=== PATIENT | male | born 1955 | race Hispanic/Latino ===

== ENCOUNTER 2020-03-12 11:03 | Day surgery (SDC) | payer OTHER ==
[~2020-03-12] VITALS: Ht 170.2 cm; Wt 91.2 kg
[2020-03-12] VITALS (8 sets, daily range): BP systolic 107–125; BP diastolic 71–81; PULSE 71–77; RESP 16–18; TEMP 97.5–97.6
[2020-03-12] MEDS ORDERED: SODIUM CHLORIDE 0.9% 1000ML 1,000 ML IV ONE (11:46)
[2020-03-12] MEDS ORDERED: PROPOFOL 10 MG/ML 20ML VIAL IV ONE ×2 (13:14→13:36)
[2020-03-12] MEDS ORDERED: FENTANYL CITRATE PF 50 MCG/1 ML 2ML VIAL ONE (13:14)
[2020-03-12] MEDS ORDERED: EPHEDRINE SULFATE 50 MG/ML AMPULE ONE (13:37)
== END 2020-03-12 14:40 | disposition home or self-care (01) ==
LOC: DAH 11:03 → SUH 11:03
PROVIDERS: ATTEND Surgery
DX: Z09 Encounter for follow-up examination after completed treatment for conditions other than malignant neoplasm (principal); D12.2 Benign neoplasm of ascending colon; Z11.59 Encounter for screening for other viral diseases; K57.30 Diverticulosis of large intestine without perforation or abscess without bleeding; I10 Essential (primary) hypertension; E78.5 Hyperlipidemia, unspecified; M10.9 Gout, unspecified; E07.89 Other specified disorders of thyroid; E07.9 Disorder of thyroid, unspecified; Z79.899 Other long term (current) drug therapy; Z79.890 Hormone replacement therapy; Z83.3 Family history of diabetes mellitus; Z82.49 Family history of ischemic heart disease and other diseases of the circulatory system
CPT/HCPCS: 36415; 45385; 88305; A4215; A4221; A4222; A4223; A4606; A4620; A4649; A4663; J2704 ×2; J3010; J3490; J7030; U0003

== ENCOUNTER 2023-04-03 05:44 | Day surgery (SDC) | payer OTHER ==
[2023-04-01 16:00] VITALS: BP 155/92
[~2023-04-03] VITALS: Ht 170.2 cm; Wt 93.0 kg
[~2023-04-03 05:44] MED LIST: ALLO300T2 PO; BETA1TAB20 PO; LEVO150C4 PO; LISI40TA9 PO; TAMS-1 PO
[2023-04-03 06:30] VITALS: BP 135/89
[2023-04-03] MEDS ORDERED: PROPOFOL 10 MG/ML 20ML VIAL IV ONE ×2 (08:09→08:40)
== END 2023-04-03 09:35 | disposition home or self-care (01) ==
LOC: DAH 05:44 → ENDO 05:44
PROVIDERS: ATTEND Surgery
DX: Z12.11 Encounter for screening for malignant neoplasm of colon (principal); Z20.822 Contact with and (suspected) exposure to COVID-19; K57.91 Diverticulosis of intestine, part unspecified, without perforation or abscess with bleeding; I10 Essential (primary) hypertension; K21.9 Gastro-esophageal reflux disease without esophagitis; M10.9 Gout, unspecified; E78.5 Hyperlipidemia, unspecified; Z82.49 Family history of ischemic heart disease and other diseases of the circulatory system; Z83.3 Family history of diabetes mellitus; Z79.899 Other long term (current) drug therapy; Z79.890 Hormone replacement therapy; Z98.890 Other specified postprocedural states
CPT/HCPCS: 87426; 45378; J2704 ×2; A4620; A4215 ×2; A4223; A4657 ×3; A7002; A4222; A4221; A4663; A4216; J7030; A4606

== ENCOUNTER → 2023-07-27 | Outpatient (CLI) | payer OTHER ==
[~2023-07-27] MED LIST changes: +IOHEXOL 350 MG/ML 100ML INFUS..BTL IV ONE; +IOHEXOL-350 50ML VIAL IV ONE
== END | disposition home or self-care (01) ==
LOC: RAH 07:56
PROVIDERS: ATTEND Internal Medicine Cardiovascular Disease
DX: K76.0 Fatty (change of) liver, not elsewhere classified (principal); I71.21 Aneurysm of the ascending aorta, without rupture; I71.20 Thoracic aortic aneurysm, without rupture, unspecified
CPT/HCPCS: 75635; 71275; Q9967 ×2

== ENCOUNTER 2024-07-18 11:30 | Observation (INO) | payer OTHER ==
[2024-07-15 12:02] VITALS: BP 147/83; PULSE 67; RESP 17; TEMP 98.6
[2024-07-15 12:11] LABS: BASOPHILS # (AUTO) 0.02 K/uL (0.00-0.20); BASOPHILS % (AUTO) 0.3 % (0.0-5.0); EOSINOPHILS # (AUTO) 0.24 K/uL (0.00-0.70); HEMATOCRIT 42.7 % (42-54); IMMATURE GRANULOCYTE ABSOLUTE 0.02 K/uL (0-1); LYMPHOCYTES # (AUTO) 1.1 K/uL (1.0-4.8); LYMPHOCYTES % (AUTO) 17.6 % (21.0-51.0); MEAN CORPUSCULAR HEMOGLOBIN 31.4 pg (27.0-33.0); MEAN CORPUSCULAR HGB CONC 34.9 g/dL (32.0-36.0); MEAN CORPUSCULAR VOLUME 90.1 fL (79-99); MONOCYTES # (AUTO) 0.3 K/uL (0.1-1.0); MONOCYTES % (AUTO) 5.6 % (3.0-13.0); NEUTROPHILS # (AUTO) 4.4 K/uL (1.8-7.7); NEUTROPHILS % (AUTO) 72.2 % (40.0-77.0); PLATELET COUNT (AUTO) 157 K/uL (130-400); RED BLOOD CELL COUNT(AUTO) 4.74 MIL/uL (4.50-6.20); RED CELL DISTRIBUTION WIDTH 12.9 % (11.0-15.5)
[2024-07-15 12:52] LABS: CREATININE 0.9 mg/dL (0.5-1.3)
[~2024-07-18] VITALS: Ht 170.2 cm; Wt 91.4 kg
[2024-07-18] VITALS (22 sets, daily range): BP systolic 120–132; BP diastolic 59–79; PULSE 60–81; RESP 14–20; TEMP 97.4–98.2
[~2024-07-18 11:30] MED LIST changes: -BETA1TAB20 PO; +BUPR-561 PO; +CHOL100046 PO; -IOHEXOL 350 MG/ML 100ML INFUS..BTL IV ONE; -IOHEXOL-350 50ML VIAL IV ONE
[2024-07-18] MEDS: ceFAZolin SODIUM 2 GM VIAL ONE (12:49)
[2024-07-18] MEDS: LACTATED RINGERS 1000ML 1,000 ML IV ONE (12:50)
[2024-07-18] MEDS ORDERED: ondanSETRON 4MG INJ ONE (15:56)
[2024-07-18] MEDS ORDERED: proPOFol 10 MG/ML 20ML VIAL IV ONE (15:56)
[2024-07-18] MEDS ORDERED: MIDAZOLAM HCL 1 MG/ML 2ML VIAL ONE (15:56)
[2024-07-18] MEDS ORDERED: rocuRONium bROMide 10MG/1ML 5ML VL ONE ×2 (15:56→16:24)
[2024-07-18] MEDS ORDERED: LIDOCAINE HCL MPF 1% 5ML VIAL ONE (15:56)
[2024-07-18] MEDS ORDERED: FENTanyl CITRate PF 50 MCG/1 ML 5ML AMP IV ONE (15:57)
[2024-07-18] MEDS: BUPIvacaine/PF 0.5% 30ML VIAL ONE (16:25)
[2024-07-18] MEDS ORDERED: metoCLOPRAmide 10 MG/2 ML VIAL ONE (16:40)
[2024-07-18] MEDS ORDERED: ketOROlac 30MG VIAL (30MG/ML) ONE (18:16)
[2024-07-18] MEDS ORDERED: GLYCOPYRROLATE 0.2 MG/ML 5 ML VIAL ONE (18:17)
[2024-07-18] MEDS ORDERED: NEOSTIGMINE METHYLSULFATE 1MG/ML IV ONE (18:18)
[2024-07-18] MEDS ORDERED: FENTanyl CITRate PF 50 MCG/1 ML 2ML VIAL ONE (18:22)
[2024-07-18] MEDS: LACTATED RINGERS 1000ML 1,000 ML IV SCH (19:00)
[2024-07-18] MEDS ORDERED: hydrALAZine 20MG/ML VIAL IV PRN (19:00)
[2024-07-18] MEDS ORDERED: hydroMORPHone 0.5 MG SYG (0.5MG/0.5ML) IVP PRN (19:00)
[2024-07-18] MEDS ORDERED: PROCHLORPERAZINE 10MG/2ML INJ IV PRN (19:00)
[2024-07-18] MEDS ORDERED: HYDROcod/acetaMINOPHEN 7.5/325 MG 15 ML UDCUP PO PRN (19:00)
[2024-07-18] MEDS ORDERED: ondanSETRON 4MG INJ IVP PRN (19:00)
[2024-07-18] MEDS: FAMOTIDINE 20MG VIAL IV ONE (19:39)
[2024-07-18] MEDS: MEPERIDINE-PF 25 MG/ML SYG ONE ×2 (19:40→19:41)
[2024-07-18] MEDS: acetaMINOPHEN 1,000 MG/100 ML VIAL IV ONE (19:41)
[2024-07-18] MEDS: ketOROlac 30MG VIAL (30MG/ML) IV PRN (20:57)
[2024-07-18] MEDS: tamSULOsin HCL 0.4 MG CAP.ER.24H PO SCH (20:58)
[2024-07-19 00:30] VITALS: BP 128/72; PULSE 72; RESP 19; TEMP 98.1
[2024-07-19 01:30] VITALS: BP 117/64; PULSE 75; RESP 18; TEMP 98
[2024-07-19 02:30] VITALS: BP 119/66; PULSE 78; RESP 20; TEMP 97.9
[2024-07-19] MEDS: levoTHYROxine 150 MCG TABLET PO SCH (06:41)
[2024-07-19 07:15] VITALS: BP 133/74; PULSE 60; RESP 20; TEMP 98.6
[2024-07-19 08:00] VITALS: O2SAT 98
[2024-07-19] MEDS: ENOXAPARIN SODIUM 30 MG/0.3 ML SQ SCH (10:29)
[2024-07-19 11:00] VITALS: BP 141/77; PULSE 66; RESP 20; TEMP 98.4
[2024-07-19] MEDS: LISINOPRIL 40 MG TABLET PO SCH (12:32)
[2024-07-19] MEDS: alloPURInol 300 MG TABLET PO SCH (12:32)
[2024-07-19] MEDS: buPROPion HCL 150 MG TABLET.SA PO SCH (12:32)
== END 2024-07-19 17:21 | disposition home or self-care (01) ==
LOC: DAH 11:30 → DAHIP 11:31 → INTOOBSV 11:31 → DAH 11:31 → 4DH 19:57
PROVIDERS: ADMIT Surgery; ATTEND Surgery
DX: K44.9 Diaphragmatic hernia without obstruction or gangrene (principal); K21.9 Gastro-esophageal reflux disease without esophagitis; I10 Essential (primary) hypertension; F41.9 Anxiety disorder, unspecified; F32.A Depression, unspecified; Z79.899 Other long term (current) drug therapy
CPT/HCPCS: 80048; 85025; 86850 ×2; 86900 ×2; 86901 ×2; 36415 ×2; 93005; 43282; 96374; 96375; 96376; 96372; 82948; A6260; A4663; J7120 ×2; A4215 ×2; J3490 ×4; J3010 ×2; J2250; J2704; J2405; J1885 ×3; J2710; J0665; J2175 ×2; J2765; J0690; C1781; A4930; A4223 ×2; A4213; A4222; A4221; A4216; A4600; G0378 ×10; J1650; 43235

== ENCOUNTER → 2024-08-19 | Outpatient (CLI) | payer OTHER ==
[~2024-08-19] MED LIST changes: -CHOL100046 PO
--- NOTE | 2024-08-19 11:48 | HMCIMG ---
UPPER GI TRACT, WO KUB REASON: Diaphragmatic hernia without obstruction or gangrene. COMPARISON: None TECHNIQUE: Gastrografin upper GI series study was performed. FINDINGS: There is no obstruction to the antegrade passage of barium from mouth through jejunum. A normal esophageal stripping wave is seen. Postop changes are seen. Stomach is moderately distended.. Duodenal bulb and duodenal sweep are unremarkable. There is gastroesophageal reflux into the level of the mid thoracic esophagus. No hiatal hernia is seen. No leakage is seen. IMPRESSION: No leakage or obstruction is seen.
== END | disposition home or self-care (01) ==
LOC: RAH 08:16
PROVIDERS: ATTEND Surgery
DX: K44.9 Diaphragmatic hernia without obstruction or gangrene (principal)
CPT/HCPCS: 74240